=== PATIENT | female | born 1975 | race Caucasian/White ===

== ENCOUNTER 2020-03-13 15:15 | Outpatient (CLI) | payer BC, SELFPAY ==
--- NOTE | ~2020-03-13 | MM_ITS ---
EXAMINATION: MM screening idris BI w zakiya HISTORY: Screening TECHNIQUE: Craniocaudal and mediolateral oblique 3-D tomosynthesis images were obtained and synthetic 2-D images were generated. CAD analysis was submitted and interpreted. COMPARISON: 05/15/2016 BREAST PARENCHYMAL COMPOSITION: The breasts are heterogeneously dense, which may obscure small masses . FINDINGS: There are bilateral asymmetries medially in both breasts. There are no suspicious calcifica tions or architectural distortion. IMPRESSION: 1. Bilateral breast asymmetries. 2. Additional mammographic views and possible breast ultrasound are recommended. BI-RADS Category 0: Incomplete: Needs additional imaging evaluation. Reviewed, dictated and finalized at location A. IMPRESSION: 1. Bilateral breast asymmetries. 2. Additional mammographic views and possible breast ultrasound are recommended . BI-RADS Category 0: Incomplete: Needs additional imaging evaluation.
== END 2020-03-13 15:16 | disposition home or self-care (01) ==
PROVIDERS: PCP Obstetrics & Gynecology; Visit Provider Obstetrics & Gynecology
DX: Z12.31 Encounter for screening mammogram for malignant neoplasm of breast (principal)
CPT/HCPCS: 77063; 77067

== ENCOUNTER → 2020-03-22 14:13 | Outpatient (CLI) | payer BC, SELFPAY ==
--- NOTE | ~2020-03-22 | MMUS_ITS ---
EXAMINATION: MM diagnostic mammo BI, US breast BI complete HISTORY: Bilateral mammographic asymmetries reported on 03/13/2020 screening mammogram TECHNIQUE: Additional 3-D tomosynthesis images of both breasts were performed and synthetic 2-D image s were generated. CAD analysis was submitted and interpreted. High resolution bilateral complete analisa st ultrasound was performed. COMPARISON: 03/23/2020, 05/15/2016 bilateral digital screening mammogram examinations FINDINGS: MAMMOGRAPHIC FINDINGS: There is a circumscribed 7 mm rounded opacity in the inner mid to lower left breast at mid depth (lef t craniocaudal spot compression Tomosynthesis image 21/46; left ML Tomosynthesis image 42/55). There is a circumscribed 4 mm oval opacity in the lower outer right breast (right ML Tomosynthesis im age 18/57) ULTRASOUND: No sonographic abnormality of the right breast is evident. There is a circumscribed irregularly-shaped approximately 7 x 7.5 x 10 mm hypoechoic solid lesion at 8:00 left breast location 3 cm from nipple. This corresponds to the mammographic finding in the inner mid to lower left breast. Ultrasound-guided biopsy is recommended. IMPRESSION: 1. 7 x 7.5 x 10 mm irregular solid mass at left breast at 8:00 3 cm from nipple 2. Ultrasound-guided biopsy of left 8:00 breast mass is recommended BI-RADS category 4, suspicious findings. Dr. Branch telephoned the report and ultrasound guided biopsy recommendation on 03/22/[address] Fagan. Reviewed, dictated and finalized at location A. IMPRESSION: 1. 7 x 7.5 x 10 mm irregular solid mass at left breast at 8:00 3 cm from nipple 2. Ultrasound-guided biopsy of left 8:00 breast mass is recommended BI-RADS category 4, suspicious findings. Dr. Branch telephoned the report and ultrasound guided biopsy recommendation on at [address] Fagan.
== END ==
PROVIDERS: Visit Provider Obstetrics & Gynecology
DX: R92.8 Other abnormal and inconclusive findings on diagnostic imaging of breast (principal)
CPT/HCPCS: 76641; 77066

== ENCOUNTER 2020-04-02 10:03 | Outpatient (CLI) | payer BC, SELFPAY ==
--- NOTE | ~2020-04-02 | MMUS_ITS ---
EXAMINATION: US breast biopsy LT w image, MM post biopsy invasive LT DATE: 04/02/2020 11:14 (accession [id number]), 04/02/2020 11:24 (accession [id number]) INDICATION: Indeterminate left breast mass. Ultrasound-guided core biopsy is requested to evaluate f or malignancy. TECHNIQUE AND FINDINGS: The risks and potential benefits of the procedure were discussed with the patient including bleeding and infection. A time out was performed. The skin of the left breast was prepared and draped in usual sterile fashion. 1% lidocaine was used for superficial anesthesia. 1% lidocaine with epinephrine was used for deep anesthesia. A vacuum-assisted biopsy gun needle was advanced through to the outer edge of the region of interest from an inferolateral approach utilizing sonographic guidance. A total of four tissue core samples we re obtained through the lesion. A tissue marker clip was then placed at the biopsy site. Hemostasis w as achieved. A sterile bandage was applied. The patient tolerated procedure well and there was no evidence of immediate complication. The patient was given verbal instructions to return to the Emergency Department in the event of severe breast pa in or rapid breast enlargement. A two view left breast mammogram was obtained to document tissue steve er clip placement. IMPRESSION: 1. Successful ultrasound-guided vacuum-assisted biopsy of left breast mass with tissue marker placeme nt. Reviewed, dictated and finalized at location A. IMPRESSION: 1. Successful ultrasound-guided vacuum-assisted biopsy of left breast mass with tissue marker placement.
== END 2020-04-02 10:04 | disposition home or self-care (01) ==
PROVIDERS: PCP Obstetrics & Gynecology; Visit Provider Obstetrics & Gynecology
DX: D24.2 Benign neoplasm of left breast (principal)
CPT/HCPCS: 19083; 88305; A4648